=== PATIENT | female | born 1995 | race Caucasian/White ===

== ENCOUNTER → 2020-08-21 11:31 | Outpatient (CLI) | payer OTHER, MEDICAID, SELFPAY ==
[2020-08-21 11:57] LABS: COVID19 -Nasal RAPID Negative (Negative)
== END ==
PROVIDERS: PCP Family Medicine; Visit Provider Family Medicine
DX: R05 Cough (principal); Z20.822 Contact with and (suspected) exposure to COVID-19
CPT/HCPCS: 87635